=== PATIENT | female | born 1990 | race Caucasian/White ===

== ENCOUNTER 2020-03-21 17:10 | Emergency (ER) | payer OTHER, SELFPAY ==
[~2020-03-21] VITALS: Ht 160 cm; Wt 78.0 kg
[2020-03-21 17:55] VITALS: BP 131/77
--- NOTE | 2020-03-21 18:00 | NUR ---
COVID SWAB SENT TO LAB.
--- NOTE | 2020-03-21 18:06 | NUR ---
C/O LOSS OF TASTE/SMELL X3 WEEKS. BROTHER HAS COVID +. MED HX: DENIES
[2020-03-21 19:11] VITALS: BP 131/77
--- NOTE | 2020-03-21 19:11 | NUR ---
Patient discharged with v/s stable. Written and verbal after care instructions given and explained. Patient verbalized understanding. Ambulatory with steady gait. All questions addressed prior to discharge. Advised to follow up with PMD.
== END 2020-03-21 19:11 | disposition home or self-care (01) ==
LOC: MED 17:10 → EEVIPCON 17:10 → MED 19:11
DX: R43.8 Other disturbances of smell and taste (principal); Z20.828 Contact with and (suspected) exposure to other viral communicable diseases
CPT/HCPCS: 99283; U0003